=== PATIENT | female | born 1985 | race American Indian/Alaskan Native ===

== ENCOUNTER 2016-09-04 15:15 | Emergency (ER) | payer MEDICAID ==
[2016-09-04 15:16] VITALS: BMI 26.6
[2016-09-04 15:31] VITALS: TEMP 97.9
--- NOTE | 2016-09-04 16:32 | C.PDOC ---
History Of Present Illness 30 yr old female with PMHx of depression and recently diagnosed with Lupus 7 months ago, presents to the ER for feeling depressed for the past few days. Patient states this morning she woke up feeling extremely depressed, crying and wanting to . Patient states she being diagnosed with Lupus the pain makes her want to kill herself. Patient is accompanied by mom who states the patient attempted suicide at the age of 15. Patient states she currently has no plan but if she could think of one she would overdose. Patient denies fever, chest pain, SOB, nausea, vomiting, abdominal pain, homicidal ideation, weakness or numbness. Time Seen by Provider: 09/04/16 15:45 Chief Complaint (Nursing): Psychiatric Evaluation History Per: Patient History/Exam Limitations: no limitations Onset/Duration Of Symptoms: Persistent Current Symptoms Are (Timing): Still Present Suicide/Self Injury Attempted (Context): Ingestion Past Medical History Reviewed: Historical Data, Nursing Documentation, Vital Signs Vital Signs: Last Vital Signs Temp 97.9 F 09/04/16 15:25 Pulse 88 09/04/16 15:25 Resp 17 09/04/16 15:25 BP 145/91 H 09/04/16 15:25 Pulse Ox 97 09/04/16 18:22 - Medical History PMH: Asthma, Bipolar Disorder, Depression, Gastrointestinal Ulcer, Rheumatoid Arthritis - [facility] Procedures BILAT TUBAL DIVISION NEC (03/20/14) LOW CERVICAL (03/20/14) Family History: States: No Known Family Hx - Social History Hx Tobacco Use: No Hx Alcohol Use: Yes Hx Substance Use: No - Immunization History Hx Tetanus Toxoid Vaccination: No Hx Influenza Vaccination: No Hx Pneumococcal Vaccination: No Review Of Systems Except As Marked, All Systems Reviewed And Found Negative. Constitutional: Negative for: Fever Cardiovascular: Negative for: Chest Pain Respiratory: Negative for: Shortness of Breath Gastrointestinal: Negative for: Nausea, Vomiting, Abdominal Pain Neurological: Negative for: Weakness, Numbness Psych: Positive for: Depression, Suicidal ideation, Other (No homicidal ideation ) Physical Exam - Physical Exam Appears: Well, Non-toxic, No Acute Distress Skin: Warm, Dry, No Rash Head: Atraumatic, Normacephalic Oral Mucosa: Moist Chest: Symmetrical, No Tenderness Cardiovascular: Rhythm Regular, No Murmur Respiratory: Normal Breath Sounds, No Rales, No Rhonchi, No Stridor, No Wheezing Extremity: Normal ROM, No Swelling Neurological/Psych: Oriented x3, Normal Speech ED Course And Treatment - Laboratory Results Result Diagrams: 09/04/16 16:38 09/04/16 16:38 O2 Sat by Pulse Oximetry: 97 - Other Rad CXR X-Ray: Viewed By Me, Read By Radiologist Interpretation: HISTORY: SOB. COMPARISON: Chest x-ray performed 07/06/16. TECHNIQUE: Chest, one view. FINDINGS: Examination limited by habitus. LUNGS : No focal consolidation. Please note that chest x-ray has limited sensitivity for the detection of pulmonary masses. PLEURA: No significant pleural effusion identified. No definite pneumothorax . CARDIOVASCULAR: Heart size appears within normal limits. OSSEOUS STRUCTURES: No acute osseous abnormality identified. VISUALIZED UPPER ABDOMEN: Unremarkable. OTHER FINDINGS: None. IMPRESSION: No focal consolidation, significant pleural effusion, or definite pneumothorax identified. Medical Decision Making Medical Decision Making: PLAN: * CXR * EKG * Alcohol Serum * Drug Screen * CBC * Urinalysis Patient medically stable for further psych eval, transfer, admission. Disposition - Disposition Disposition: Trans to Other Acute Care Hosp Disposition Time: 19:18 Condition: GUARDED - Clinical Impression Clinical Impression: Acute depression - Scribe Statement The provider has reviewed the documentation as recorded by the Tim De Provider Attestation: All medical record entries made by the Tim were at my direction and personally dictated by me. I have reviewed the chart and agree that the record accurately reflects my personal performance of the history, physical exam, medical decision making, and the department course for this patient. I have also personally directed, reviewed, and agree with the discharge instructions and disposition.
[2016-09-04 16:42] LABS: BASO % 0.3 % (0.0-2.0); EOS # 0.1 K/uL (0.0-0.7); HEMATOCRIT 41.9 % (34.0-47.0); LYMPH # 2.2 K/uL (1.0-4.3); LYMPH % 32.8 % (20.0-40.0); MEAN CELL VOLUME 91.9 fL (81.0-99.0); MEAN CORPUSCULAR HEMOGLOBIN 30.7 pg (27.0-31.0); MEAN CORPUSCULAR HGB CONC 33.4 g/dL (33.0-37.0); MEAN PLATELET VOLUME 8.3 fL (7.2-11.7); MONO # 0.7 K/uL (0.0-0.8); MONO % 10.2 % (0.0-10.0); RED CELL DISTRIBUTION WIDTH 13.1 % (11.5-14.5); WHITE BLOOD COUNT 6.7 K/uL (4.8-10.8)
[2016-09-04 16:46] LABS: RBC URINE < 1 /hpf (0-3); URINE BILIRUBIN NEGATIVE (NEGATIVE); URINE BLOOD NEGATIVE (NEGATIVE); URINE COLOR Yellow (YELLOW); URINE GLUCOSE (UA) NORMAL (Normal); URINE KETONE NEGATIVE (NEGATIVE); URINE LEUKOCYTE ESTERASE NEG Leu/uL (Negative); URINE PROTEIN NEGATIVE (NEGATIVE); URINE UROBILINOGEN NORMAL mg/dL (0.2-1.0); WBC URINE < 1 /hpf (0-5)
--- NOTE | 2016-09-04 16:51 | RAD ---
HISTORY: SOB COMPARISON: Chest x-ray performed 07/06/16 TECHNIQUE: Chest, one view. FINDINGS: Examination limited by habitus. LUNGS: No focal consolidation. Please note that chest x-ray has limited sensitivity for the detection of pulmonary masses. PLEURA: No significant pleural effusion identified. No definite pneumothorax . CARDIOVASCULAR: Heart size appears within normal limits. OSSEOUS STRUCTURES: No acute osseous abnormality identified. VISUALIZED UPPER ABDOMEN: Unremarkable. OTHER FINDINGS: None. IMPRESSION: No focal consolidation, significant pleural effusion, or definite pneumothorax identified.
[2016-09-04 16:53] LABS: CHLORIDE 103 mmol/L (98-107)
[2016-09-04 16:54] LABS: SODIUM 144 mmol/L (132-148)
[2016-09-04 16:56] LABS: ALB/GLOB RATIO 1.2 (1.0-2.1); ALKALINE PHOSPHATASE 73 U/L (38-126); AST/SGOT 30 U/L (14-36); BILIRUBIN,TOTAL 0.6 mg/dL (0.2-1.3); CARBON DIOXIDE 28 mmol/L (22-30); GFR AFRICAN-AMERICAN > 60
[2016-09-04 16:57] LABS: ALCOHOL SERUM < 10 mg/dl (0-10); ALT/SGPT 19 U/L (9-52); BLOOD UREA NITROGEN 12 mg/dL (7-17); CALCIUM 9.2 mg/dl (8.6-10.4); GLUCOSE,RANDOM 80 mg/dL (65-105)
[2016-09-04] MEDS ORDERED: Apap-Butalbital-Caffeine 325-50-40mg Tab PO STA ×2 (18:18→19:19)
[2016-09-04] MEDS ORDERED: Apap-Butalbital-Caffeine 325-50-40mg Tab ONE (18:20)
[2016-09-04 19:21] VITALS: BP 116/79; PULSE 84; RESP 16; O2SAT 98
--- NOTE | 2016-09-06 14:02 | CARD ---
APPROVED REPORT EKG Measurement Heart [id number] <Conclusion> Normal sinus rhythm Normal ECG
== END 2016-09-04 20:08 | disposition short-term general hospital (02) ==
LOC: C.ER 15:15
DX: F32.9 Major depressive disorder, single episode, unspecified (principal)

== ENCOUNTER 2017-02-14 10:02 | Emergency (ER) | payer MEDICAID ==
[2017-02-14 10:02] VITALS: BMI 28.5
[2017-02-14 10:12] VITALS: O2SAT 96
--- NOTE | 2017-02-14 11:42 | C.PDOC ---
History Of Present Illness 31 year old female, with past medical history of lupus, presents to Emergency Department for evaluation of generalized body pain since last night. Pt complaints of joint pain specifically in the lower extremities. Otherwise, denies chest pain, shortness of breath, headache, fever, chills, cough, nausea, vomiting, diarrhea, abdominal pain, dizziness or lightheadedness. Time Seen by Provider: 02/14/17 10:59 Chief Complaint (Nursing): Pain, Chronic History Per: Patient History/Exam Limitations: no limitations Onset/Duration Of Symptoms: Days Current Symptoms Are (Timing): Still Present Recent travel outside of the [place]: No Additional History Per: Patient Past Medical History Reviewed: Historical Data, Nursing Documentation, Vital Signs Vital Signs: Last Vital Signs Temp 97.5 F L 02/14/17 13:14 Pulse 94 H 02/14/17 13:14 Resp 20 02/14/17 13:14 BP 116/77 02/14/17 13:14 Pulse Ox 96 02/14/17 13:15 - Medical History PMH: Anxiety, Asthma, Bipolar Disorder, Depression, Gastrointestinal Ulcer, Rheumatoid Arthritis Denies: Diabetes, Hepatitis, HIV, HTN, Chronic Kidney Disease, Seizures, Sexually Transmitted Disease - [facility] Procedures BILAT TUBAL DIVISION NEC (03/20/14) LOW CERVICAL (03/20/14) Family History: States: Unknown Family Hx - Social History Hx Tobacco Use: No Hx Alcohol Use: No Hx Substance Use: No - Immunization History Hx Tetanus Toxoid Vaccination: No Hx Influenza Vaccination: No Hx Pneumococcal Vaccination: No Review Of Systems Except As Marked, All Systems Reviewed And Found Negative. Constitutional: Positive for: Other (generalized body pain). Negative for: Fever, Chills Cardiovascular: Negative for: Chest Pain, Palpitations Respiratory: Negative for: Cough, Shortness of Breath Gastrointestinal: Negative for: Nausea, Vomiting, Abdominal Pain, Diarrhea Neurological: Negative for: Headache, Dizziness Physical Exam - Physical Exam Appears: Non-toxic, No Acute Distress Skin: Normal Color, Warm, Dry Head: Atraumatic, Normacephalic Eye(s): bilateral: Normal Inspection, PERRL, EOMI Ear(s): Bilateral: Normal Nose: Normal Oral Mucosa: Moist Throat: Normal Neck: Normal ROM, Supple Lymphatic: No Adenopathy Chest: Symmetrical Cardiovascular: Rhythm Regular, No Murmur Respiratory: Normal Breath Sounds, No Rales, No Rhonchi, No Wheezing Gastrointestinal/Abdominal: Soft, No Tenderness Back: Normal Inspection, No CVA Tenderness Extremity: Normal ROM, No Pedal Edema, Capillary Refill (<2 sec.), No Deformity Extremity: Bilateral: Atraumatic, Normal Color And Temperature Pulses: Left Dorsalis Pedis: Normal, Right Dorsalis Pedis: Normal Neurological/Psych: Oriented x3, Normal Speech, Normal Motor, Normal Sensation Gait: Steady ED Course And Treatment O2 Sat by Pulse Oximetry: 96 (RA) Pulse Ox Interpretation: Normal Medical Decision Making Medical Decision Making: Patient was given Morphine IM, and Prednisone PO. Disposition - Disposition Referrals: Joshua Middleton MD [Staff Provider] - Disposition: HOME/ ROUTINE Disposition Time: 12:10 Condition: GOOD Prescriptions: predniSONE [predniSONE Tab] 20 mg PO DAILY #5 tab Instructions: Autoimmune Disease (ED) Forms: [employer]ant[employer] (Portuguese) Print Language: ESTONIAN - Clinical Impression Clinical Impression: Lupus (systemic lupus erythematosus) - Scribe Statement The provider has reviewed the documentation as recorded by the Scribluci Isabel All medical record entries made by the Scribe were at my direction and personally dictated by me. I have reviewed the chart and agree that the record accurately reflects my personal performance of the history, physical exam, medical decision making, and the department course for this patient. I have also personally directed, reviewed, and agree with the discharge instructions and disposition.
[2017-02-14] MEDS ORDERED: Morphine 4 MG/ML VIAL ONE (12:11)
[2017-02-14 13:15] VITALS: BP 116/77; PULSE 94; RESP 20; TEMP 97.5
== END 2017-02-14 13:14 | disposition home or self-care (01) ==
LOC: C.ER 10:02
DX: M32.9 Systemic lupus erythematosus, unspecified (principal)
CPT/HCPCS: 96372; 99285; J2270

== ENCOUNTER 2017-02-27 09:39 | Inpatient (IN) | payer MEDICAID ==
[2017-02-22 11:50] VITALS: BMI 27.8
[2017-02-27] MEDS ORDERED: Bupivacaine HCl 0.25% PF (10 ml) Inj ONE (12:04)
[2017-02-27] MEDS ORDERED: Lidocaine 1% Inj (20ml) ONE (12:04)
[2017-02-27] MEDS ORDERED: ceFAZolin 1 gm FROZEN Premix 2 GM/100 ML ML IVPB ONE (12:05)
[2017-02-27] MEDS ORDERED: Propofol 10 mg/ml Inj (20 ML) ONE ×2 (12:08→12:42)
[2017-02-27] MEDS ORDERED: Midazolam 2 MG/2 ML VIAL ONE (12:08)
[2017-02-27] MEDS ORDERED: Lactated Ringer's 1,000 ML IV ONE ×2 (12:15→15:18)
[2017-02-27] MEDS ORDERED: Succinylcholine Chloride 20 mg/ml Syr (5 ml) IV ONE (12:40)
[2017-02-27] MEDS ORDERED: Oxycodone/Acetaminophen 5/325 mg Tab PO PRN (13:07)
[2017-02-27] MEDS ORDERED: HYDROmorphone 0.5 mg/0.5 ml ISec ONE (13:31)
[2017-02-27] MEDS: HYDROmorphone 0.5 mg/0.5 ml ISec IVP PRN ×3 (13:32→15:17)
[2017-02-27] MEDS ORDERED: Albuterol 0.083% Inhal Sol (2.5 mg/3 mL) UD ONE (13:48)
[2017-02-27] MEDS ORDERED: Albuterol 0.083% Inhal Sol (2.5 mg/3 mL) UD INH ONE (13:48)
[2017-02-27] MEDS ORDERED: DiphenhydrAMINE 50 mg/ml Inj IVP PRN (14:03)
[2017-02-27] MEDS ORDERED: Naloxone 0.4 mg/ml Inj (Adult) IVP PRN (14:17)
[2017-02-27] MEDS: Morphine Monoject Barrel PCA 1mg/ml IV PRN ×2 (15:18→18:00)
[2017-02-27] MEDS: ceFAZolin IV 1 gm in Dextrose 1 GM/50 ML BAG IVPB SCH (22:21)
[2017-02-27] MEDS: Dextrose 5%/0.45% NS 1,000 ML IV SCH (22:22)
[2017-02-27 22:26] VITALS: RESP 20
--- NOTE | 2017-02-27 23:38 | OP ---
DATE OF PROCEDURE: 02/27/2017 PREOPERATIVE DIAGNOSIS: Recurrent incisional hernia. POSTOPERATIVE DIAGNOSES: Recurrent incisional hernia with multiple abdominal adhesions. PROCEDURES PERFORMED: Primary repair of recurrent incisional hernia with extensive lysis of adhesions. SURGEON: Joshua Middleton MD. ANESTHESIA: General. ESTIMATED BLOOD LOSS: 75 mL. POSTOPERATIVE CONDITION: Stable. INDICATIONS FOR PROCEDURE: This is a 31-year-old female, presents with recurrent incisional hernia in the midline, who now will undergo primary repair. GROSS FINDINGS: There was a midline recurrent hernia with a sac which contained omentum. There were multiple adhesions in this area of both small bowel and colon which had to be taken down sharply. DESCRIPTION OF PROCEDURE: The patient was taken to the operating room. General anesthesia was administered. The abdomen was prepped and draped. A midline incision was made over the hernia sac. The hernia sac was medially encountered, dissected free down to its base, transected, and sent as a specimen. There was omentum actually adherent to it, so the omentum was divided between clamps with 0 Vicryl ties and the omentectomy was performed. Next, the edges which contained adhesions were taken down sharply. This included both small and large bowel. Serosal injuries to the bowel secondary to dissection trauma were repaired with silk. The abdomen was irrigated with saline. The mesenteric blood vessel was repaired. The wound was again irrigated with saline and a primary repair was accomplished using a running #1 Novafil suture. The wound was irrigated. The subcutaneous space was irrigated with saline and flaps had to be raised in order to make the skin level at the closure. Once the flaps have been developed and raised, the closure was accomplished in layers with Vicryl and skin clips. The patient tolerated the procedure well and returned to recovery room in stable condition. Joshua Middleton MD
[2017-02-28] MEDS: Dextrose 5%/0.45% NS 1,000 ML IV SCH ×2 (02:00→13:19)
[2017-02-28] MEDS ORDERED: Benzocaine/Menthol (Cepacol) Lozenge MT STA (05:46)
[2017-02-28] MEDS: ceFAZolin IV 1 gm in Dextrose 1 GM/50 ML BAG IVPB SCH ×2 (05:51→13:22)
[2017-02-28 07:39] LABS: BASO % 0.1 % (0.0-2.0); EOS % 0.2 % (0.0-4.0); HEMATOCRIT 33.3 % (34.0-47.0); LYMPH # 2.5 K/uL (1.0-4.3); LYMPH % 18.8 % (20.0-40.0); MEAN CELL VOLUME 89.6 fL (81.0-99.0); MEAN CORPUSCULAR HEMOGLOBIN 30.6 pg (27.0-31.0); MEAN CORPUSCULAR HGB CONC 34.1 g/dL (33.0-37.0); MEAN PLATELET VOLUME 7.8 fL (7.2-11.7); MONO # 0.8 K/uL (0.0-0.8); NRBC % 0.1 % (0.0-2.0); RED CELL DISTRIBUTION WIDTH 13.5 % (11.5-14.5)
[2017-02-28 07:49] LABS: CHLORIDE 103 mmol/L (98-107); POTASSIUM 3.6 mmol/L (3.6-5.2); SODIUM 135 mmol/L (132-148)
[2017-02-28 07:51] LABS: GFR AFRICAN-AMERICAN > 60
[2017-02-28 07:52] LABS: ALB/GLOB RATIO 0.9 (1.0-2.1); ALKALINE PHOSPHATASE 61 U/L (38-126); ALT/SGPT 32 U/L (9-52); AST/SGOT 31 U/L (14-36); BILIRUBIN,TOTAL 0.3 mg/dL (0.2-1.3); BLOOD UREA NITROGEN 8 mg/dL (7-17); CARBON DIOXIDE 26 mmol/L (22-30); GLUCOSE,RANDOM 119 mg/dL (65-105); TOTAL PROTEIN 7.1 g/dL (6.3-8.3)
[2017-02-28 07:53] LABS: CALCIUM 8.8 mg/dl (8.6-10.4)
[2017-02-28 08:03] LABS: WHITE BLOOD COUNT 13.3 K/uL (4.8-10.8)
[2017-02-28] MEDS ORDERED: Enoxaparin 40 mg Syringe SC SCH (10:00)
[2017-02-28] MEDS: Morphine Monoject Barrel PCA 1mg/ml IV PRN (11:06)
--- NOTE | 2017-02-28 15:41 | CP.PCM.PN ---
Subjective - Date & Time of Evaluation Date of Evaluation: 02/28/17 Time of Evaluation: 08:05 - Subjective Subjective: PGY 2 Medicine Consult Note- Dr. Frost's service Patient s/p repair of recurrent incisional hernia with lysis of adhesions. Patient very angry this morning, stating that she wanted her pain better controlled. Per nursing, patient was already on a RIB TRIM SEPARATOR pump with several PRN related agents on board for breakthrough pain. Patient was also annoyed by the consulting attending on the case. Patient wanted her outpatient doctors to see her. It was explained that those attendings likely did not come to the hospital. Patient was unwilling to answer further questions regarding her medical history course to date at that time. The following history listed below was taken from an earlier admission back in September 2016 PMH: asthma, rheumatoid arthritis, Lupus and bipolar disorder PSH: x 3, tubal ligation, ventral hernia repair All: NKDA SH: Occasional tobacco and EtOH use. FH: DM, HTN in many family members Objective - Vital Signs/Intake and Output Vital Signs (last 24 hours): Temp Pulse Resp BP Pulse Ox 98.2 F 74 20 98/60 L 98 02/28/17 07:38 02/28/17 14:23 02/28/17 07:38 02/28/17 07:38 02/28/17 14:23 Intake and Output: 02/28/17 02/28/17 06:59 18:59 Intake Total 2840 Output Total 500 Balance 2340 - Medications Medications: Current Medications Alprazolam (Xanax) 0.5 mg PO BID PRN PRN Reason: Anxiety Last Admin: 02/27/17 21:41 Dose: 0.5 mg Diphenhydramine HCl (Benadryl) 25 mg IVP Q6 PRN PRN Reason: Itching / Pruritus Docusate Sodium (Colace) 100 mg PO BID DIEGO Last Admin: 02/28/17 10:31 Dose: 100 mg Enoxaparin Sodium (Lovenox) 40 mg SC DAILY DIEGO Last Admin: 02/28/17 10:30 Dose: 40 mg Hydroxychloroquine Sulfate (Plaquenil) 200 mg PO Q12 DIEGO Last Admin: 02/28/17 10:31 Dose: 200 mg Dextrose/Sodium Chloride (Dextrose 5%/0.45% Ns 1000 Ml) 1,000 mls @ 80 mls/hr IV .[id number] [facility] Last Admin: 02/28/17 13:19 Dose: 80 mls/hr Cefazolin Sodium/Dextrose (Ancef Iv 1 Gm Duplex) 1 gm in 50 mls @ 100 mls/hr IVPB Q8H [facility] Last Admin: 02/28/17 13:22 Dose: 100 mls/hr Ketorolac Tromethamine (Toradol) 30 mg IVP Q6 PRN PRN Reason: pain 9-10 Stop: 03/04/17 13:08 Last Admin: 02/27/17 13:30 Dose: 30 mg Naloxone HCl (Narcan) 0.1 mg IVP Q2M PRN PRN Reason: apnea Ondansetron HCl (Zofran Inj) 4 mg IVP Q6 PRN PRN Reason: Nausea/Vomiting Oxycodone/Acetaminophen (Percocet 5/325 Mg Tab) 2 tab PO Q4H PRN PRN Reason: pain 1-8 Stop: 03/02/17 13:08 Last Admin: 02/28/17 15:07 Dose: 2 tab Pantoprazole Sodium (Protonix Inj) 40 mg IVP DAILY [facility] Last Admin: 02/28/17 10:32 Dose: 40 mg Zolpidem Tartrate (Ambien) 5 mg PO HS [facility] Last Admin: 02/27/17 22:23 Dose: 5 mg - Labs Labs: 02/28/17 07:01 02/28/17 07:01 - Constitutional Appears: Non-toxic, No Acute Distress, Other (limited exam due to patient unwilling to comply with questions at the time.) - Head Exam Head Exam: ATRAUMATIC, NORMAL INSPECTION - ENT Exam ENT Exam: Mucous Membranes Moist - Neck Exam Neck Exam: Full ROM - Respiratory Exam Respiratory Exam: NORMAL BREATHING PATTERN - Neurological Exam Neurological Exam: Alert, Awake, Oriented x3 - Psychiatric Exam Psychiatric exam: Agitated - Skin Skin Exam: Dry, Normal Color, Warm Assessment and Plan (1) S/P hernia repair Assessment & Plan: Pain management per primary on the case, Surgeon Dr. Middleton Continued surgical management Status: Acute (2) Lupus (systemic lupus erythematosus) Assessment & Plan: On Plaquenil Pain control on board Status: Chronic (3) Rheumatoid arthritis Assessment & Plan: On Plaquenil NSAIDs on board Status: Chronic (4) Asthma Assessment & Plan: Duonebs as needed Continue to monitor Oxygen PRN Status: Chronic (5) Prophylactic measure Assessment & Plan: Patient has an element of pain seeking behavior. It is likely that patient has true pain secondary to rheumatoid arthritis and lupus and operation; however so , large doses of opiate medication can lead to respiratory depression as well as altered mentation. At this time, will strongly advise against increasing opiate medication administration. PPI daily Lovenox daily SCDs Discussed with attending. All management and planning per Dr. Frost Status: Acute
[2017-02-28] MEDS ORDERED: Albuterol-Ipratrop 3 mg / 0.5 (3 ml) UD INH PRN (15:46)
[2017-02-28 16:23] VITALS: BP 109/72; PULSE 88; TEMP 98.1; O2SAT 97
== END 2017-02-28 18:51 | disposition home or self-care (01) | DRG 150 ==
LOC: C.SDS 09:39 → C.9S 13:08 → C.3T 19:26
PROVIDERS: ADMIT Surgery; ATTEND Surgery
PROC: 0WQF0ZZ Repair Abdominal Wall, Open Approach (ICD-10-PCS; 2017-02-27)
PROC: 0DNU0ZZ Release Omentum, Open Approach (ICD-10-PCS; principal; 2017-02-27 11:00)
DX: K43.2 Incisional hernia without obstruction or gangrene (principal); K66.0 Peritoneal adhesions (postprocedural) (postinfection); M32.9 Systemic lupus erythematosus, unspecified; I10 Essential (primary) hypertension; E11.9 Type 2 diabetes mellitus without complications; F31.9 Bipolar disorder, unspecified; M06.9 Rheumatoid arthritis, unspecified; J45.909 Unspecified asthma, uncomplicated; Z72.0 Tobacco use

== ENCOUNTER 2017-06-16 17:12 | Emergency (ER) | payer MEDICAID ==
[2017-06-16 17:55] VITALS: BMI 28.5
[2017-06-16 17:57] VITALS: RESP 18
--- NOTE | 2017-06-16 20:28 | RAD ---
HISTORY: cough. crackles at bases COMPARISON: Chest x-ray performed 02/22/17 TECHNIQUE: Chest PA and lateral FINDINGS: LUNGS: No focal consolidation. Please note that chest x-ray has limited sensitivity for the detection of pulmonary masses. PLEURA: No significant pleural effusion identified. No definite pneumothorax . CARDIOVASCULAR: Heart size appears within normal limits. OSSEOUS STRUCTURES: No acute osseous abnormality identified. VISUALIZED UPPER ABDOMEN: Unremarkable. OTHER FINDINGS: None. IMPRESSION: No focal consolidation, significant pleural effusion, or definite pneumothorax identified.
--- NOTE | 2017-06-16 21:07 | C.PDOC ---
History Of Present Illness 31 y/o female, whose PMHx includes Lupus, presents to the ED for evaluation of cough and associated pleuritic pain which has been ongoing for around 2 weeks. Patient reports she has experienced two rounds of the same viral illness. She has bee taking Tamiflu without improvement. She denies nausea, vomiting, shortness of breath. Time Seen by Provider: 06/16/17 18:14 Chief Complaint (Nursing): Flu-like Symptoms Past Medical History Vital Signs: Last Vital Signs Temp 98.1 F 06/16/17 21:11 Pulse 89 06/16/17 21:11 Resp 18 06/16/17 21:11 BP 124/81 06/16/17 21:11 Pulse Ox 99 06/16/17 21:11 - Medical History PMH: Anxiety, Arthritis (SCOLIOSIS; BACK PAIN), Asthma (NEVER HOSPITALIZED), Bipolar Disorder, Depression, Gastrointestinal Ulcer, Peripheral Edema (FROM LUPUS), Rheumatoid Arthritis Denies: Diabetes, Hepatitis, Chronic Kidney Disease, Sexually Transmitted Disease Comment Only: COPD (ASTHMA) Surgical History: Endoscopy - [facility] Procedures (02/27/17) BILAT TUBAL DIVISION NEC (03/20/14) LOW CERVICAL (03/20/14) REPAIR ABDOMINAL WALL, OPEN APPROACH (02/27/17) Family History: States: Unknown Family Hx - Social History Hx Tobacco Use: No Hx Alcohol Use: Yes (SOCIALLY) Hx Substance Use: No - Immunization History Hx Tetanus Toxoid Vaccination: No Hx Influenza Vaccination: No Hx Pneumococcal Vaccination: No ED Course And Treatment O2 Sat by Pulse Oximetry: 98 (on RA) Pulse Ox Interpretation: Normal - Other Rad CXR X-Ray: Interpreted by Me, Viewed By Me, Read By Radiologist Interpretation: HISTORY: cough. crackles at bases. COMPARISON: Chest x-ray performed 02/22/17. TECHNIQUE: Chest PA and lateral. FINDINGS: LUNGS: No focal consolidation. Please note that chest x-ray has limited sensitivity for the detection of pulmonary masses. PLEURA: No significant pleural effusion identified. No definite pneumothorax . CARDIOVASCULAR: Heart size appears within normal limits. OSSEOUS STRUCTURES: No acute osseous abnormality identified. VISUALIZED UPPER ABDOMEN: Unremarkable. OTHER FINDINGS: None. IMPRESSION: No focal consolidation, significant pleural effusion, or definite pneumothorax identified. Medical Decision Making Medical Decision Making: pt with cough and virral flu like sympotms x 2-3 weeks, still coughing with pleuritic pain. cxr neg for infiltrate. tylenol po. d/c home. f/u pmd, supportive care. Disposition Counseled Patient/Family Regarding: Studies Performed, Diagnosis, Need For Followup - Disposition Disposition: HOME/ ROUTINE Disposition Time: 21:06 Condition: STABLE Additional Instructions: Please take Tylenol or Motrin for body aches, increased restm increased fluid intake and decreased dairy intake. Follow up with Dr Frost in a few days. Instructions: Influenza (ED) Forms: [employer] (Namibian), General Discharge Instructions - Clinical Impression Clinical Impression: Influenza-like illness - PA / TOOLROOM CLERK / Resident Statement MD/DO has reviewed & agrees with the documentation as recorded. - Scribe Statement The provider has reviewed the documentation as recorded by the Scribe (Reena Isabel) All medical record entries made by the Scribe were at my direction and personally dictated by me. I have reviewed the chart and agree that the record accurately reflects my personal performance of the history, physical exam, medical decision making, and the department course for this patient. I have also personally directed, reviewed, and agree with the discharge instructions and disposition.
[2017-06-16 21:12] VITALS: BP 124/81; PULSE 89; TEMP 98.1
[2017-06-16 22:22] VITALS: O2SAT 98
== END 2017-06-16 21:24 | disposition home or self-care (01) ==
LOC: C.ER 17:12
DX: J11.1 Influenza due to unidentified influenza virus with other respiratory manifestations (principal); M06.9 Rheumatoid arthritis, unspecified; M32.9 Systemic lupus erythematosus, unspecified